=== PATIENT | male | born 1940 | race Caucasian/White ===

== ENCOUNTER → 2025-11-03 14:31 | Outpatient (REF) | payer MEDICARE, OTHER, SELFPAY | LOC: RCS 14:31 | PROVIDERS: ATTENDING PHYSICIAN Internal Medicine Cardiovascular Disease; FAMILY PHYSICIAN Family Medicine | DX: Z00.8 Encounter for other general examination (principal); I25.10 Atherosclerotic heart disease of native coronary artery without angina pectoris; E78.00 Pure hypercholesterolemia, unspecified; I45.10 Unspecified right bundle-branch block; I45.2 Bifascicular block | CPT/HCPCS: 93306 ==

== ENCOUNTER 2025-11-11 06:08 | Day surgery (SDC) | payer MEDICARE, OTHER, SELFPAY ==
--- NOTE | 2025-11-08 08:35 | PTCARENOTE ---
Abn ECG, Dr. theodore notified, no additional interventions requested.
[2025-11-11] VITALS (8 sets, daily range): BP systolic 140–185; BP diastolic 76–114; BMI 26.4
== END 2025-11-11 09:20 | disposition home or self-care (01) ==
LOC: SDS 06:08
PROVIDERS: ATTENDING PHYSICIAN Specialist
DX: C61 Malignant neoplasm of prostate (principal); N40.0 Benign prostatic hyperplasia without lower urinary tract symptoms; R97.20 Elevated prostate specific antigen [PSA]
CPT/HCPCS: 55700; 76998; 88305; 88344